=== PATIENT | female | born 1975 | race Caucasian/White ===

== ENCOUNTER 2016-08-31 17:29 | Emergency (ER) | payer OTHER ==
[~2016-08-31] VITALS: Ht 152.4 cm; Wt 75.0 kg
[2016-08-31 17:34] VITALS: BP 123/83; PULSE 88; RESP 20; O2SAT 98
--- NOTE | 2016-08-31 18:04 | ED.REPORT ---
HPI-Chest Pain 40 and Over Date of Service August 31, 2016 ED Provider: Rosas Carrion MD The patient is a 41 year old female with a history of migraines and eczema who presents to the ED reporting cough onset yesterday after spending all day in the sun. Associated symptoms include pleuritic chest pain, subjective fever, shortness of breath, nausea, and vomiting (multiple times last night, once today ). The patient denies chills, ear pain, cervical adenopathy, or other symptoms. She has never had similar symptoms in the past. Nursing Notes Stated Complaint: COUGHING, CHEST PAIN Chief Complaint: Chest Pain Nursing Notes Reviewed: Yes (Death by [employer], [employer] not reconciled) Allergies: Coded Allergies: No Known Allergies (Verified Allergy, Unknown, 12/26/13) Scheduled PRN Benzonatate (Tessalon Perle) 100 Mg Capsule 200 MG PO TID PRN PRN For Cough Hydrocodone-Acetaminophen 5-325 mg (Hydrocodone-Acetaminophen 5-325 mg) 1 Each Tablet 1 TABLET PO Q4H PRN PRN Pain or severe cough Ibuprofen (Ibuprofen) 400 Mg Tablet 400-800 MG PO QID PRN PRN For Pain General Time Seen by MD: 18:02 Chief Complaint Other (Cough) Hx Obtained From: Patient Arrived By: Walk-in Sudden in Onset?: No Onset Occurred: Yesterday Symptom Duration: Since onset Location: : Chest left: Chest right Quality: Painful, Pleuritic Severity: Current: Moderate Severity: Maximum: Moderate Pertinent Negative: Relieved by nothing Recent Healthcare: No recent doctor visit Similar Sx Previous: No Past Medical History Past Medical History Migraines Eczema Past Surgical History Reports: Cholecystectomy Reports: Tubal ligation Family History Father had "heart problems" in his late 50s Smoking History Current Every Day Smoker Social History Alcohol Use: "Social" Drug Use: Denies drug use Ambulatory Status Independent Review of Systems Constitutional: Reports: Fever (Subjective), Denies: Chills Respiratory: Reports: Non-productive cough, Pleuritic pain, Shortness of breath Cardiovascular: Reports: Chest pain GI: Reports: Nausea, Vomiting (Multiple times last night, once today) Complete sys rev & neg: except as marked. Ears / Nose / Throat: Denies: Earache bilateral Hematologic: Denies Adenopathy Physical Exam Initial Vital Signs Vital Signs (First) Date Time Temp Pulse Resp B/P Pulse Ox O2 Delivery O2 Flow Rate FiO2 08/31/16 17:34 36.9 88 20 123/83 98 Room Air Initial VS: Reviewed, Vital signs normal Head / Eyes: Atraumatic, Normocephalic ENT: Conjunctiva normal, No scleral icterus Neck: Supple, Full range of motion Skin: Warm, Dry, No cyanosis Neurologic: Alert, Oriented, Nonfocal Psychiatric: Mood/affect normal, Behavior normal, Normal thought content General/Constitutional: Awake, Alert Respiratory / Chest: Breath sounds NL, Breath sounds = bilat, No respiratory distress, No wheezing Uncomfortable cough No tachypnea or dyspnea Cardiovascular: Regular rhythm, Heart sounds NL Heart Rate / Rhythm: Positive: Tachycardia (Low-grade) Abdomen: Soft, Non-tender Interpretation & Diagnostics Lab Results Interpretation Result Diagram: 08/31/16180908/31/161809 Test 08/31/16 18:10 White Blood Count 8.5th/mm3 (3.8-10.1) Red Blood Count 4.56mil/mm3 (3.90-5.20) Hemoglobin 12.9g/dL (12.0-15.6) Hematocrit 38.7% (35.0-46.0) Mean Corpuscular Volume 84.9fL (81-100) Mean Corpuscular Hemoglobin 28.3pg (27.0-35.0) Mean Corpuscular Hemoglobin Concent 33.3% (32.0-37.0) Red Cell Distribution Width 13.7% (12.3-15.4) Platelet Count 266bil/L (150-400) Neutrophils (%) (Auto) 78.8% (40-74) Lymphocytes (%) (Auto) 11.4% (14-46) Monocytes (%) (Auto) 6.2% (4-12) Eosinophils (%) (Auto) 3.0% (0-5) Basophils (%) (Auto) 0.5% (0-3) Sodium Level 137mEq/L (134-144) Potassium Level 3.7mEq/L (3.5-5.2) Chloride Level 102mEq/L (97-108) Carbon Dioxide Level 19mmol/L (18-29) Blood Urea Nitrogen 4mg/dL (6-24) Creatinine 0.72mg/dL (0.57-1.00) Estimat Glomerular Filtration Rate 129mL/min (>59) Glucose Level 91mg/dL (60-99) Calcium Level 9.0mg/dL (8.5-10.1) Magnesium Level 1.9mg/dL (1.6-2.6) Total Bilirubin 0.3mg/dL (0.0-1.2) Aspartate Amino Transf (AST/SGOT) 26U/L (0-50) Alanine Aminotransferase (ALT/SGPT) 19U/L (0-32) Alkaline Phosphatase 72U/L (25-150) Troponin T < 0.010ug/L (0.0-0.011) Total Protein 7.1g/dL (6.4-8.4) Albumin 3.9g/dL (3.4-5.0) Hold Andrews Top Tube Received (Received) Lab Results Interpretation: CBC normal CMP normal Troponin negative (lab initiated by nursing orders based on chest pain, but no clinical features to indicate cardiac disease or need for repeat testing) ECG Interpretation Time: 18:53 Interpreted by: ED physician Normal ECG Interpretation: Normal ECG w/ rate of... (77) X-Ray Chest Interpretation Chest Xray Interpretation: IMPRESSION: No acute process. Dictated by: Manjinder Garg M.D. on 08/31/2016 at 18:10 View: AP & lat Interpretation / Wet Read by: Interpret - Radiologist Re-Eval/Medical Decision Med Decision/Clinical Course This is a 41-year-old female presents with cough, this subsequently resulted in chest pain associated with the cough. Guarded yesterday, she also had some nausea and vomiting last night, although that has mostly resolved, now she just has terrible cough, with discomfort with each cough. She is a smoker, but denies shubham fever, denies shortness of breath, cough as been nonproductive, no hemoptysis. She denies ill contacts. She has no risk factors or clinical features suggest pulmonary embolus. And she has moderate cough, but appears uncomfortable with it. She does not appear visible distress. Her vital signs are normal. A chest x-ray is negative for infiltrate. Blood work was normal no leukocytosis or markers. An incidental troponin was negative, and I do not find clinical evidence necessitated additional troponin biomarkers. EKG was normal. The patient received a lidocaine nebulizer for the cough, along with Tessalon Perles still had some discomfort cough so finally received some hydrocodone. I am not finding markers to indicate need for antibiotic therapy, as a viral etiology remains most likely. There are no clinical findings of shubham aspiration. She said no nausea here. She is being discharged in stable condition with a prescription for some additional Tessalon Perles, instructions to take ibuprofen, and prescription for a few hydrocodone for pain/cough suppression. Routine and return precautions reviewed. Patient's discharged in improved condition. Source of Hx: Old records Time of Eval: 20:04 Patient Status: Condition improved Re-Evaluation/Progress Note: Discussed with patient x-ray and lab results, diagnosis, and plan for discharge. Follow-up and return to the ER instructions given. Patient agrees with plan for care and all questions were addressed. Differential Diagnosis: Positive: Bronchitis, Chest pain, acute (from cough), Negative: Acute coronary syndrome, Acute myocardial infarct, Aortic dissection, Asthma exacerbation, Chest pain, Congestive heart failure, Dysrhythmia, Esophageal rupture, Gun shot wound chest, Hypertroph cardiomyopathy , [place]-Merrill syndrome, Myocardial infarction, Pericarditis, Pleurisy, Pneumomediastinum, Pneumonia, Pneumothorax, Pulmonary edema, Pulmonary embolism , Rib fracture, Stab wound chest Counseled Regarding: Diagnosis, Lab results, Need for follow-up, When/why to return to ED Discharge & Departure Primary Impression: Upper respiratory infection URI type: unspecified URI Qualified Code: J06.9 - Acute upper respiratory infection, unspecified Disposition: Home Discharge Condition All VS Reviewed: Yes Condition: Improved Additional Instructions: 1. Her symptoms were concerning for developing pneumonia-however your tests including both her chest x-ray and blood work and EKG are all normal. This means that the cough is not due to a bacterial infection that would benefit from antibiotics. 2. Take the cough medicine Tessalon Perles 200 mg up to 3 times a day for cough as needed. 3. You can take hydrocodone/APAP one tab up to every 4-6 hours if needed for cough or pain. Note this medication contains a narcotic and causes drowsiness. Try to use as little as possible. No driving for at least 4-6 hours after taking. 4. Take Ibuprofen 400-800 mg 3 times a day as well for the pain and discomfort. 5. Drink plenty of fluids. 6. Rest. Symptoms are expected to start to improve in a few days, although it may take a couple weeks for the cough to resolve entirely. 7. Return if new or worsening symptoms occur. 5. Referrals: [facility] (PCP) Riri Moeller Attestation Portions of this note were transcribed by Jackie Larsen. I, Dr. Carrion, personally performed the history, physical exam, and medical decision-making; I reviewed and confirmed the accuracy of the information in the transcribed note. Signed by: Richi Galeas, 08/31/2016, 20:40 copies to: [facility]; Riri Moeller Matthew F MD August 31, 2016 18:04 JACKIE LARSEN August 31, 2016 18:14
--- NOTE | 2016-08-31 18:12 | DRSVH ---
PROCEDURE: X-RAY CHEST, TWO VIEWS ([id number]) INDICATIONS: chest pain , cough TECHNIQUE: 2 views of the chest were acquired. COMPARISON: [facility], , CHEST 2VW, 10/07/2010, 7:59. FINDINGS: Surgical changes and devices: None. Lungs and pleura: No pleural effusions or pneumothorax. Lungs are clear. Mediastinum: Mediastinal contours are normal. Heart size is normal. Bones and chest wall: No suspicious bony abnormalities. Soft tissues appear unremarkable. IMPRESSION: No acute process. Dictated by: Manjinder Garg M.D. on 08/31/2016 at 18:10 Approved by: Manjinder Garg M.D. on 08/31/2016 at 18:10
[2016-08-31 18:15] LABS: BASOPHILS % (AUTO) 0.5 % (0-3); MONOCYTES % (AUTO) 6.2 % (4-12); Mean Corpuscular Hemoglobin 28.3 pg (27.0-35.0); Mean Corpuscular Volume 84.9 fL (81-100); NEUTROPHILS % (AUTO) 78.8 % (40-74); Platelet Count 266 bil/L (150-400)
[2016-08-31] MEDS ORDERED: Ondansetron 8 mg ODT Tablet PO ONE (18:15)
[2016-08-31] MEDS ORDERED: Lidocaine PF 2% 5 mL Inhalation Solution INHALATION ONE (18:15)
[2016-08-31 18:28] VITALS: PULSE 94; RESP 20; O2SAT 97
[2016-08-31 18:43] LABS: TROPONIN T < 0.010 ug/L (0.0-0.011)
[2016-08-31 18:54] LABS: Magnesium 1.9 mg/dL (1.6-2.6)
[2016-08-31] MEDS ORDERED: HYDROcodone-APAP 5-325 mg Tablet PO ONE (20:10)
[2016-08-31] MEDS ORDERED: BENZ-12 PO (20:18)
[2016-08-31] MEDS ORDERED: IBUP400T22 PO (20:18)
[2016-08-31] MEDS ORDERED: HYDR-4003 PO (20:18)
[2016-08-31 20:24] VITALS: BP 124/78; PULSE 86; RESP 20; O2SAT 97
== END 2016-08-31 20:25 | disposition home or self-care (01) ==
LOC: SED 17:29
DX: J06.9 Acute upper respiratory infection, unspecified (principal); F17.200 Nicotine dependence, unspecified, uncomplicated